=== PATIENT | female | born 1980 ===

== ENCOUNTER 2018-02-13 12:04 | Outpatient (CLI) | payer OTHER ==
[~2018-02-13] VITALS: Ht 177.8 cm; Wt 63.5 kg
== END 2018-02-13 12:25 | disposition home or self-care (01) ==
LOC: OFIC 805 12:04
DX: M26.621 Arthralgia of right temporomandibular joint (principal)

== ENCOUNTER 2021-07-07 08:53 | Outpatient (CLI) | payer OTHER | END 2021-07-07 09:03 | disposition home or self-care (01) | LOC: RAD 08:53 | PROVIDERS: ATTEND Obstetrics & Gynecology | DX: M25.562 Pain in left knee (principal); M25.561 Pain in right knee ==

== ENCOUNTER 2021-10-02 07:59 | Outpatient (CLI) | payer OTHER | END 2021-10-02 08:06 | disposition home or self-care (01) | LOC: SONOGRAMA 07:59 | PROVIDERS: ATTEND Student in an Organized Health Care Education/Training Program | DX: E04.1 Nontoxic single thyroid nodule (principal) ==

== ENCOUNTER → 2021-10-02 09:09 | Outpatient (CLI) | payer OTHER | END | disposition home or self-care (01) | LOC: LAB 09:09 | PROVIDERS: ATTEND Student in an Organized Health Care Education/Training Program | DX: E03.8 Other specified hypothyroidism (principal); C73 Malignant neoplasm of thyroid gland ==

== ENCOUNTER 2022-02-08 08:12 | Outpatient (CLI) | payer OTHER | END 2022-02-08 08:25 | disposition home or self-care (01) | LOC: RAD 08:12 | PROVIDERS: ATTEND Family Medicine | DX: S99.921A Unspecified injury of right foot, initial encounter (principal) ==

== ENCOUNTER 2022-06-06 08:44 | Outpatient (CLI) | payer OTHER | END 2022-06-06 08:46 | disposition home or self-care (01) | LOC: MAMO-SONO 08:44 | DX: Z12.31 Encounter for screening mammogram for malignant neoplasm of breast (principal); N64.4 Mastodynia; N63.0 Unspecified lump in unspecified breast ==